=== PATIENT | male | born 1995 | race African-American/Black ===

== ENCOUNTER 2017-02-04 22:12 | Emergency (ER) | payer MEDICARE, MEDICAID ==
[~2017-02-04 22:12] MED LIST: ARIP30TA2 PO; CLON0.5T4 PO; DIVA500T PO; GUAN1TAB PO; QUET100T PO; TOPI25TA48 PO
== END 2017-02-04 22:30 | disposition left against medical advice (07) ==
LOC: ER 22:27
DX: Z53.21 Procedure and treatment not carried out due to patient leaving prior to being seen by health care provider (principal)

== ENCOUNTER 2017-07-30 07:52 | Emergency (ER) | payer OTHER, MEDICAID ==
[~2017-07-30] VITALS: Ht 170.2 cm; Wt 81.6 kg
[2017-07-30] MEDS ORDERED: SODIUM CHLORIDE 0.9% 1,000 ML IV ONE (08:12)
[2017-07-30] MEDS ORDERED: FAMOTIDINE 20MG/2ML VIAL IV STA (08:12)
[2017-07-30 08:20] VITALS: BP 145/86
[2017-07-30 08:32] LABS: BASOPHILS % 0.5 % (0.0-2.0); EOSINOPHILS % 0.1 % (0.0-5.0); HEMATOCRIT. 37.1 % (42.0-52.0); HEMOGLOBIN. 13.2 g/dL (14.0-18.0); LYMPHOCYTES % 23.7 % (20.0-50.0); MEAN CORPUSCULAR HEMOGLOBIN 29.8 pg (28.0-32.0); MEAN CORPUSCULAR VOLUME 83.9 fL (80.0-94.0); MEAN PLATELET VOLUME 7.7 fl (7.4-10.4); MONOCYTES % 11.3 % (2.0-8.0); NEUTROPHILS % 64.4 % (40.0-76.0); PLATELET 237 x1000/uL (130-400); RED BLOOD CELL COUNT 4.43 mill/uL (4.7-6.1); RED CELL DISTRIBUTION WIDTH 16.1 % (11.6-14.6)
[2017-07-30 08:38] LABS: CHLORIDE 106 mEq/L (98-107)
[2017-07-30 08:43] LABS: ETHANOL BLOOD < 10 mg/dL
== END 2017-07-30 09:15 | disposition left against medical advice (07) ==
LOC: ER 08:54
DX: R10.13 Epigastric pain (principal); F90.9 Attention-deficit hyperactivity disorder, unspecified type; F31.9 Bipolar disorder, unspecified; F17.200 Nicotine dependence, unspecified, uncomplicated; F15.10 Other stimulant abuse, uncomplicated
CPT/HCPCS: 36415; 80053; 80165; 83690; 85025; 93005; 99285; G0482; J7030

== ENCOUNTER 2024-05-09 22:25 | Emergency (ER) | payer MEDICAID, OTHER ==
[~2024-05-09] VITALS: Ht 170.2 cm; Wt 100.0 kg
[~2024-05-09 22:25] MED LIST changes: +DIVA-75 PO; -DIVA500T PO
[2024-05-09 22:33] VITALS: BP 149/80; PULSE 142; RESP 18; TEMP 97.5; O2SAT 99
[2024-05-09] MEDS ORDERED: DILTIAZEM HCL 5MG/ML 5ML VIAL IV ONE (22:45)
== END 2024-05-09 23:10 | disposition left against medical advice (07) ==
LOC: ER 22:25
DX: R07.89 Other chest pain (principal); I48.91 Unspecified atrial fibrillation; F31.9 Bipolar disorder, unspecified; Z87.891 Personal history of nicotine dependence
CPT/HCPCS: 71045; 93005; 99283; 99284

== ENCOUNTER 2024-05-31 07:47 | Emergency (ER) | payer MEDICARE, MEDICAID ==
[~2024-05-31] VITALS: Ht 177.8 cm; Wt 90.0 kg
[2024-05-31 07:49] VITALS: O2SAT 98
[2024-05-31] MEDS: HYDROCODONE/ACETAMINOPHEN 5/325MG TABLET PO ONE (11:25)
[2024-05-31] MEDS ORDERED: ACET-2708 PO (12:54)
[2024-05-31] MEDS ORDERED: IBUP-2029 PO (12:54)
[2024-05-31 13:55] VITALS: BP 110/74; PULSE 105; RESP 18; TEMP 37.1; O2SAT 98
== END 2024-05-31 13:56 | disposition home or self-care (01) ==
LOC: ER 07:47
DX: S82.51XA Displaced fracture of medial malleolus of right tibia, initial encounter for closed fracture (principal); F31.9 Bipolar disorder, unspecified; Z79.1 Long term (current) use of non-steroidal anti-inflammatories (NSAID); W17.89XA Other fall from one level to another, initial encounter; Y93.89 Activity, other specified; Y92.89 Other specified places as the place of occurrence of the external cause; Y99.8 Other external cause status
CPT/HCPCS: 29515; 73590; 73610; 73620; 99284

== ENCOUNTER 2024-10-22 19:11 | Emergency (ER) | payer MEDICAID, MEDICARE ==
[~2024-10-22] VITALS: Ht 170.2 cm; Wt 100.0 kg
[~2024-10-22 19:11] MED LIST changes: +ACET-2708 PO; +DIVA-131 PO; -DIVA-75 PO; -GUAN1TAB PO; +GUAN1TAB37 PO; +IBUP-1455 PO; +TOPI-252 PO; -TOPI25TA48 PO
[2024-10-22 19:19] VITALS: O2SAT 100
[2024-10-22] MEDS: ZIPRASIDONE MESYLATE 20MG/VIAL IM STA (19:59)
[2024-10-22] MEDS: DIPHENHYDRAMINE 50MG/ML VIAL IM STA (19:59)
[2024-10-22] MEDS: LORAZEPAM 2MG/ML UD SYRINGE IM NR (20:00)
[2024-10-22] MEDS ORDERED: LORAZEPAM 2MG/ML INJ IM ONE (20:00)
[2024-10-22 21:27] LABS: BASOPHILS % 0.5 % (0.0-2.0); EOSINOPHILS % 3.9 % (0.0-5.0); HEMATOCRIT. 40.9 % (42.0-52.0); HEMOGLOBIN. 14.5 g/dL (14.0-18.0); LYMPHOCYTES % 40.2 % (20.0-50.0); MEAN CORPUSCULAR HEMOGLOBIN 29.5 pg (28.0-32.0); MEAN CORPUSCULAR HGB CONC 35.5 g/dL (31.0-37.0); MEAN CORPUSCULAR VOLUME 83.1 fL (80.0-94.0); MEAN PLATELET VOLUME 8.4 fl (7.4-10.4); MONOCYTES % 7.4 % (2.0-8.0); PLATELET 237 x1000/uL (130-400); RED BLOOD CELL COUNT 4.93 mill/uL (4.7-6.1); RED CELL DISTRIBUTION WIDTH 16.4 % (11.6-14.6); WHITE BLOOD COUNT 10.4 x1000/uL (4.5-11.0)
[2024-10-22 21:36] LABS: CHLORIDE 108 mEq/L (98-107); POTASSIUM 3.8 mEq/L (3.5-5.1); SODIUM 141 mEq/L (136-145)
[2024-10-22 21:37] LABS: CALCIUM 9.6 mg/dL (8.7-10.4); CARBON DIOXIDE 23 mEq/L (21-32)
[2024-10-22 21:42] LABS: CREATININE 0.9 mg/dL (0.6-1.3); ETHANOL BLOOD < 10 mg/dL (<10); GLUCOSE 104 mg/dL (70-105); UREA NITROGEN BLOOD 13 mg/dL (9-23)
[2024-10-23] MEDS: OLANZAPINE 5MG TABLET ODT PO SCH (09:58)
[2024-10-23] MEDS: DIPHENHYDRAMINE 50MG/ML VIAL IM PRN (09:59)
[2024-10-23] MEDS: OLANZAPINE 10 MG/VIAL IM PRN (10:00)
[2024-10-23] MEDS: DIVALPROEX SODIUM 500MG DR TABLET PO SCH ×2 (15:00→18:38)
[2024-10-23 18:18] LABS: CLARITY URINE CLEAR (CLEAR); COLOR URINE YELLOW (YELLOW); GLUCOSE URINE NEGATIVE (NEGATIVE); KETONES URINE NEGATIVE (NEGATIVE); LEUKOCYTE ESTERASE URINE NEGATIVE (NEGATIVE); NITRITE URINE NEGATIVE (NEGATIVE); OCCULT BLOOD URINE NEGATIVE (NEGATIVE); PH URINE 5.5 (4.5-8.0); PROTEIN URINE NEGATIVE (NEGATIVE); SPECIFIC GRAVITY URINE 1.026 (1.005-1.030); UROBILINOGEN URINE 0.2 E.U./dL (0.2-1.0)
[2024-10-23 18:28] LABS: *AMPHETAMINES SCREEN URINE NEGATIVE (NEGATIVE); *BARBITURATES SCREEN URINE NEGATIVE (NEGATIVE); *BENZODIAZEPINES SCREEN URINE NEGATIVE (NEGATIVE); *COCAINE SCREEN URINE NEGATIVE (NEGATIVE); METHADONE URINE SCREEN NEGATIVE (NEGATIVE)
[2024-10-23 18:29] LABS: CANNABINOID URINE SCREEN PRESUMPTIVE POSITIVE (NEGATIVE); ECSTASY MDMA SCREEN URINE NEGATIVE (NEGATIVE); OPIATES URINE SCREEN NEGATIVE (NEGATIVE); PHENCYCLIDINE URINE SCREEN NEGATIVE (NEGATIVE)
[2024-10-23] MEDS: NICOTINE 21MG PATCH TD ONE (18:37)
[2024-10-23] MEDS: IBUPROFEN 600MG TABLET PO ONE (18:37)
[2024-10-23] MEDS: TRAZODONE HCL 50MG TABLET PO SCH (21:13)
[2024-10-24 19:32] VITALS: BP 142/91; PULSE 102; RESP 16; TEMP 36.8; O2SAT 98
== END 2024-10-24 19:33 ==
LOC: ER 19:11
DX: R45.851 Suicidal ideations (principal); R45.1 Restlessness and agitation; F25.9 Schizoaffective disorder, unspecified; Z79.1 Long term (current) use of non-steroidal anti-inflammatories (NSAID); F10.90 Alcohol use, unspecified, uncomplicated; Z79.899 Other long term (current) drug therapy; Z20.822 Contact with and (suspected) exposure to COVID-19; Y90.9 Presence of alcohol in blood, level not specified
CPT/HCPCS: 80305; 80048; 81003; 80320; 85025; 36415; 99291; 73610; 96372; 87426; J1200 ×2; J2060; J3486; J3490; 99285; G0480

== ENCOUNTER 2024-12-27 16:06 | Emergency (ER) | payer MEDICAID, MEDICARE ==
[~2024-12-27 16:06] MED LIST changes: -DIVA-131 PO; +DIVA-75 PO; -IBUP-1455 PO; +IBUP-2029 PO
[2024-12-27 16:13] VITALS: PULSE 82; O2SAT 99
== END 2024-12-27 17:08 | disposition left against medical advice (07) ==
LOC: ER 16:06
DX: R07.89 Other chest pain (principal); Z53.21 Procedure and treatment not carried out due to patient leaving prior to being seen by health care provider